=== PATIENT | male | born 1970 | race Caucasian/White ===

== ENCOUNTER 2018-04-25 16:53 | Emergency (ER) | payer MEDICAID ==
[~2018-04-25] VITALS: Ht 172.7 cm; Wt 90.7 kg
[~2018-04-25 16:53] MED LIST: ALBU8TAB; ATOR20TA; FLUT100M7; INSUPOW; METF-372
[2018-04-25 17:09] VITALS: BP 132/81
[2018-04-25] MEDS ORDERED: cefTRIAXone SOD 1,000 MG VL IM ONE (19:15)
[2018-04-25 20:23] LABS: Basophils # (auto) 0 uL; Basophils % (auto) 0.4 % (0.0-2.0); Eosinophils # (auto) 0.3 uL; Eosinophils % (auto) 3.1 % (0.0-7.0); Hemoglobin 15.3 g/dL (13.5-17.5); Lymphocytes # (auto) 1.6 uL; Lymphocytes % (auto) 17.5 % (10.0-50.0); Mean Corpuscular Hemoglobin 30.8 pg (28.0-32.0); Mean Corpuscular Volume 90.4 fL (80.0-100.0); Monocytes # (auto) 0.8 uL; Monocytes % (auto) 8.3 % (0.0-12.0); Neutrophils # (auto) 6.5 uL; Neutrophils % (auto) 70.7 % (37.0-80.0); Nucleated Red Blood Cells % 0.1 %; Platelet Count (auto) 193 10^3/uL (140-450); Red Blood Cells 4.98 10^6/uL (4.5-5.90); Red Cell Distribution Width 13.3 % (11.8-14.3); White Blood Cell 9.2 10^3/uL (4.4-10.8)
[2018-04-25 20:44] LABS: Albumin 3.7 g/dL (3.4-5.0); BUN/Creatinine Ratio 12.9; Bilirubin, Total 0.4 mg/dL (0.2-1.0); Calcium 8.6 mg/dL (8.5-10.1); Potassium 4.2 mmol/L (3.5-5.1); Total Protein 6.9 g/dL (6.4-8.2); Uric Acid 4.7 mg/dL (3.5-7.2)
== END 2018-04-25 20:44 | disposition home or self-care (01) ==
LOC: ER 17:05
DX: M77.51 Other enthesopathy of right foot and ankle (principal); L03.115 Cellulitis of right lower limb; J45.909 Unspecified asthma, uncomplicated; E11.9 Type 2 diabetes mellitus without complications; E78.5 Hyperlipidemia, unspecified; F17.210 Nicotine dependence, cigarettes, uncomplicated
CPT/HCPCS: 36415; 80053; 83036; 84550; 85025; 96372; 99284; J0696

== ENCOUNTER 2018-04-29 20:36 | Inpatient (IN) | payer BC, MEDICAID ==
[~2018-04-29] VITALS: Ht 172.7 cm; Wt 86.6 kg
[2018-04-29 21:41] LABS: Basophils # (auto) 0 uL; Basophils % (auto) 0.5 % (0.0-2.0); Eosinophils # (auto) 0.3 uL; Eosinophils % (auto) 3.1 % (0.0-7.0); Hematocrit 45.2 % (41.0-53.0); Hemoglobin 15.6 g/dL (13.5-17.5); Lymphocytes # (auto) 1.8 uL; Lymphocytes % (auto) 21.4 % (10.0-50.0); Mean Corpuscular Hgb Conc. 34.5 g/dL (32.0-36.0); Mean Corpuscular Volume 89.8 fL (80.0-100.0); Monocytes # (auto) 0.8 uL; Neutrophils # (auto) 5.7 uL; Nucleated Red Blood Cells % 0.1 %; Platelet Count (auto) 246 10^3/uL (140-450); Red Blood Cells 5.03 10^6/uL (4.5-5.90); Red Cell Distribution Width 12.9 % (11.8-14.3); White Blood Cell 8.6 10^3/uL (4.4-10.8)
[2018-04-29 22:00] LABS: Albumin 3.6 g/dL (3.4-5.0); BUN/Creatinine Ratio 14.6; Bilirubin, Total 0.4 mg/dL (0.2-1.0); Calcium 8.9 mg/dL (8.5-10.1); Potassium 4.4 mmol/L (3.5-5.1); Total Protein 7.8 g/dL (6.4-8.2)
[2018-04-30] MEDS ORDERED: SODIUM CHLORIDE 0.9% 1,000 ML IV ONE (03:00)
[2018-04-30] MEDS ORDERED: KETOROLAC TROMETH 30 MG/ML 1ML VIAL IV ONE (03:00)
[2018-04-30] MEDS ORDERED: CLINDAMYCIN 900MG IV 50 ML IV ONE (03:00)
[2018-04-30 03:19] LABS: CRP High Sensitivity 7.62 mg/dL (< 0.3); Uric Acid 3.5 mg/dL (3.5-7.2)
[2018-04-30] MEDS ORDERED: DEXTROSE (50%) 50ML SYRG IV PRN (05:15)
[2018-04-30] MEDS ORDERED: HYDROcodone-ACET 5/325MG TAB PO PRN (05:15)
[2018-04-30] MEDS ORDERED: ONDANSETRON HCL 4 MG/2 ML VIAL IV PRN (05:15)
[2018-04-30 07:11] LABS: Calcium 7.9 mg/dL (8.5-10.1); Potassium 4.2 mmol/L (3.5-5.1)
[2018-04-30 07:13] LABS: BUN/Creatinine Ratio 15.6
[2018-04-30] MEDS: ACCU-CHEK COMFORT CURVE STRIP VI SCH ×2 (07:24→11:41)
[2018-04-30] MEDS: InsuLIN REG 1unit/0.01ml Soln (100units/ml) SC SCH ×2 (07:27→11:42)
[2018-04-30 08:25] VITALS: BP 105/69
[2018-04-30 10:37] VITALS: BP 105/64
[2018-04-30] MEDS ORDERED: ALBUAER3 IN (10:53)
[2018-04-30] MEDS ORDERED: CLINDAMYCIN 600MG IV 50 ML IV SCH (11:00)
== END 2018-04-30 14:35 | disposition home or self-care (01) | DRG 603 ==
LOC: ER 20:36 → OVERFLOW 20:37 → WEST WING 04-30 08:14
PROVIDERS: ADMIT Nurse Practitioner Family; ATTEND Family Medicine
DX: L03.115 Cellulitis of right lower limb (principal); F17.210 Nicotine dependence, cigarettes, uncomplicated; J45.909 Unspecified asthma, uncomplicated; E11.9 Type 2 diabetes mellitus without complications; Z83.3 Family history of diabetes mellitus
CPT/HCPCS: 36415; 80048; 80053; 82962; 83036; 84550; 85025; 85379; 86141; 87040; 93971; 96361; 96365; 96366; 96375; J1815; J1885; J3490